=== PATIENT | female | born 1980 | race Caucasian/White ===

== ENCOUNTER 2018-10-18 18:07 | Emergency (ER) | payer MEDICAID ==
[2018-10-18] MEDS ORDERED: Ketorolac 30 MG/ML SDV IM ONE (18:33)
[2018-10-18] MEDS ORDERED: Ondansetron 4 MG Tab.DIS PO ONE (18:34)
--- NOTE | 2018-10-18 18:55 | EDM.PDOC ---
ED HPI GENERAL MEDICAL PROBLEM - General Time Seen by Provider: 10/18/18 18:10 Source of Information: Reports: Patient History Limitations: Reports: No Limitations - History of Present Illness INITIAL COMMENTS - FREE TEXT/NARRATIVE: According to patient she claims that she has been having dull to throbbing headache behind her eye for past 4 days. Headache had not resolved with Tylenol. Pt claims she does get migraine headache 2-3 times/week, which generally resolves with Tylenol or Excedrin, but this time the headache is not getting better, she claims light bothers her. no nausea or vomiting. No blurry vision, tunnel vision or double vision. Onset: Gradual Onset Date: 10/15/18 Duration: Getting Worse Quality: Reports: Ache Severity: Moderate Improves with: Reports: None Worsens with: Reports: None Associated Symptoms: Denies: Confusion, Chest Pain, Cough, Diaphoresis, Fever/ Chills, Nausea/Vomiting, Rash, Seizure, Shortness of Breath, Syncope, Weakness ED ROS GENERAL - Review of Systems Review Of Systems: See Below Constitutional: Denies: Fever, Chills HEENT: Denies: Rhinitis, Throat Pain Respiratory: Denies: Cough, Sputum Cardiovascular: Denies: Chest Pain, Lightheadedness GI/Abdominal: Denies: Abdominal Pain, Nausea, Vomiting Musculoskeletal: Denies: Joint Pain, Joint Swelling Skin: Denies: Bruising, Pruritis, Rash Neurological: Reports: Headache. Denies: Confusion, Dizziness, Numbness, Paresthesia, Seizure, Syncope, Tingling, Weakness ED EXAM, GENERAL - Physical Exam Exam: See Below Exam Limited By: No Limitations General Appearance: Alert, WD/WN, No Apparent Distress Eye Exam: Bilateral Eye: EOMI, PERRL Ears: Normal External Exam, Normal Canal, Hearing Grossly Normal, Normal TMs Ear Exam: Bilateral Ear: Auricle Normal, Canal Normal, TM normal Nose: Normal Inspection, Normal Mucosa, No Blood Throat/Mouth: Normal Inspection, Normal Lips, Normal Teeth, Normal Gums, Normal Oropharynx, Normal Voice, No Airway Compromise Head: Atraumatic, Normocephalic Neck: Normal Inspection, Supple, Non-Tender, Full Range of Motion Respiratory/Chest: No Respiratory Distress, Lungs Clear, Normal Breath Sounds, No Accessory Muscle Use, Chest Non-Tender Cardiovascular: Normal Peripheral Pulses, Regular Rate, Rhythm, No Edema, No Gallop, No JVD, No Murmur, No Rub Neurological: Alert, Oriented, CN II-XII Intact, Normal Cognition, Normal Gait, Normal Reflexes, No Motor/Sensory Deficits Skin Exam: Warm, Intact Course - Vital Signs Text/Narrative:: Pt appears like she has intractable migraine lasting for 4 days now. Pt did receive toradol 30mg Im with Zofran 4mg. I have advised patient to go home and rest in dark room for few hours which should help with her headache. Considering that she has headache 2-3 times daily she should be seen in the clinic and be getting on prophylaxis therapy for her migraine. Pt advised to followup in the clinic next week. If symptoms worsen return to emergency room. - Orders/Labs/Meds Meds: Medications Discontinued Medications Generic Name Dose Route Start Last Admin Trade Name Moon PRN Reason Stop Dose Admin Ketorolac Tromethamine 30 mg 10/18/18 18:33 10/18/18 18:39 Toradol IM 10/18/18 18:34 30 mg ONETIME ONE Administration Ondansetron HCl 4 mg 10/18/18 18:34 10/18/18 18:43 Zofran Odt PO 10/18/18 18:35 4 mg ONETIME ONE Administration Departure - Departure Time of Disposition: 19:00 Disposition: Home, Self-Care 01 Condition: Fair Clinical Impression: Migraine - Discharge Information *PRESCRIPTION DRUG MONITORING PROGRAM REVIEWED*: Not Applicable *COPY OF PRESCRIPTION DRUG MONITORING REPORT IN PATIENT JORGE: Not Applicable Additional Instructions: Pt appears like she has intractable migraine lasting for 4 days now. Pt did receive toradol 30mg Im with Zofran 4mg. I have advised patient to go home and rest in dark room for few hours which should help with her headache. Considering that she has headache 2-3 times daily she should be seen in the clinic and be getting on prophylaxis therapy for her migraine. Pt advised to followup in the clinic next week. If symptoms worsen return to emergency room. - Problem List & Annotations (1) Migraine SNOMED Code(s): 53485280 Code(s): G43.909 - MIGRAINE, UNSP, NOT INTRACTABLE, WITHOUT STATUS MIGRAINOSUS Status: Acute - Problem List Review Problem List Initiated/Reviewed/Updated: Yes - Assessment/Plan Assessment:: Migraine headache Plan: Pt appears like she has intractable migraine lasting for 4 days now. Pt did receive toradol 30mg Im with Zofran 4mg. I have advised patient to go home and rest in dark room for few hours which should help with her headache. Considering that she has headache 2-3 times daily she should be seen in the clinic and be getting on prophylaxis therapy for her migraine. Pt advised to followup in the clinic next week. If symptoms worsen return to emergency room.
== END 2018-10-18 19:00 | disposition home or self-care (01) ==
LOC: LB.ED 18:07
DX: G43.909 Migraine, unspecified, not intractable, without status migrainosus (principal)
CPT/HCPCS: 96372; 99283; A9270-GY; J1885